=== PATIENT | female | born 1940 | race Asian ===

== ENCOUNTER → 2016-09-12 | Outpatient (CLI) | payer MEDICARE, OTHER ==
[~2016-09-12] VITALS: Ht 149.9 cm; Wt 56.0 kg
[~2016-09-12] MED LIST: ALEN70TA48 PO; AMLO1TAB12 PO; ATOR20TA86 PO; CETI-260 PO; CLOP75 PO; METO-323 PO; OMEG1CAP11 PO; RISE35TA8 PO
[2016-09-12 12:03] VITALS: BP 93/59
== END | disposition home or self-care (01) ==
LOC: SRCNTR 11:58
PROVIDERS: ATTEND Internal Medicine Critical Care Medicine
DX: I10 Essential (primary) hypertension (principal); R91.1 Solitary pulmonary nodule; J30.9 Allergic rhinitis, unspecified
CPT/HCPCS: G0463

== ENCOUNTER → 2016-11-12 | Outpatient (CLI) | payer MEDICARE, OTHER ==
[~2016-11-12] VITALS: Ht 144.8 cm; Wt 56.0 kg
[2016-11-12 13:29] VITALS: BP 114/60
== END | disposition home or self-care (01) ==
LOC: SRCNTR 13:25
PROVIDERS: ATTEND Internal Medicine Critical Care Medicine
DX: I10 Essential (primary) hypertension (principal); A31.8 Other mycobacterial infections; J30.9 Allergic rhinitis, unspecified
CPT/HCPCS: G0463

== ENCOUNTER → 2017-01-03 | Outpatient (CLI) | payer MEDICARE, OTHER ==
[~2017-01-03] VITALS: Ht 144.8 cm; Wt 56.7 kg
[~2017-01-03] MED LIST changes: -RISE35TA8 PO
[2017-01-03 13:36] VITALS: BP 105/61
== END | disposition home or self-care (01) ==
LOC: SRCNTR 13:21
PROVIDERS: ATTEND Internal Medicine Critical Care Medicine
DX: I10 Essential (primary) hypertension (principal); R91.1 Solitary pulmonary nodule; J30.9 Allergic rhinitis, unspecified; Z77.22 Contact with and (suspected) exposure to environmental tobacco smoke (acute) (chronic); Z86.73 Personal history of transient ischemic attack (TIA), and cerebral infarction without residual deficits
CPT/HCPCS: G0463

== ENCOUNTER → 2017-12-09 | Outpatient (CLI) | payer MEDICARE, OTHER ==
[~2017-12-09] VITALS: Ht 144.8 cm; Wt 54.0 kg
[~2017-12-09] MED LIST changes: +AMLO-511 PO; -CETI-260 PO; +CETI-290 PO; -METO-323 PO; +METO25XL PO; +VALS160T2 PO
[2017-12-09 11:28] VITALS: BP 106/65
== END | disposition home or self-care (01) ==
LOC: SRCNTR 11:22
PROVIDERS: ATTEND Internal Medicine Critical Care Medicine
DX: J30.9 Allergic rhinitis, unspecified (principal); R91.1 Solitary pulmonary nodule; A31.9 Mycobacterial infection, unspecified; I10 Essential (primary) hypertension; Z86.73 Personal history of transient ischemic attack (TIA), and cerebral infarction without residual deficits
CPT/HCPCS: G0463

== ENCOUNTER 2017-12-12 00:03 | Emergency (ER) | payer MEDICARE, OTHER ==
[~2017-12-12] VITALS: Ht 149.9 cm; Wt 54.1 kg
[~2017-12-12 00:03] MED LIST changes: -AMLO-511 PO; -METO25XL PO; -VALS160T2 PO
[2017-12-12] MEDS ORDERED: VALS160T2 PO (00:20)
[2017-12-12] MEDS ORDERED: AMLO-511 PO (00:20)
[2017-12-12 01:04] VITALS: BP 177/89
[2017-12-12] MEDS ORDERED: LORazepam 1 MG TABLET PO ONE (01:30)
== END 2017-12-12 01:50 | disposition home or self-care (01) ==
LOC: EMS 00:04
DX: G47.00 Insomnia, unspecified (principal); T48.5X5A Adverse effect of other anti-common-cold drugs, initial encounter; E78.00 Pure hypercholesterolemia, unspecified; I10 Essential (primary) hypertension; Z86.73 Personal history of transient ischemic attack (TIA), and cerebral infarction without residual deficits; Y92.89 Other specified places as the place of occurrence of the external cause
CPT/HCPCS: 93005; 99283

== ENCOUNTER → 2018-03-06 | Outpatient (CLI) | payer MEDICARE, OTHER ==
[~2018-03-06] VITALS: Ht 144.8 cm; Wt 52.0 kg
[~2018-03-06] MED LIST changes: -ALEN70TA48 PO; +AMLO-511 PO; -AMLO1TAB12 PO; -CETI-290 PO; -OMEG1CAP11 PO; +VALS160T2 PO
[2018-03-06 14:44] VITALS: BP 156/88
== END | disposition home or self-care (01) ==
LOC: SRCNTR 13:27
PROVIDERS: ATTEND Internal Medicine Critical Care Medicine
DX: J30.9 Allergic rhinitis, unspecified (principal); I10 Essential (primary) hypertension; A31.8 Other mycobacterial infections; R91.1 Solitary pulmonary nodule
CPT/HCPCS: G0463

== ENCOUNTER 2018-12-19 13:47 | Emergency (ER) | payer MEDICARE, MEDICAID ==
[~2018-12-19] VITALS: Ht 149.9 cm; Wt 53.6 kg
[~2018-12-19 13:47] MED LIST changes: -CLOP75 PO; +CLOP75TA3 PO
[2018-12-19] MEDS ORDERED: LOSA50TA64 PO (15:16)
[2018-12-19] MEDS ORDERED: MONT10TA21 PO (15:16)
[2018-12-19] MEDS ORDERED: CETI10TA59 PO (15:16)
[2018-12-19] MEDS ORDERED: BENZ-51 PO (15:16)
[2018-12-19 17:04] LABS: BASOPHILS % (AUTO) 0.3 % (0.0-2.0); EOSINOPHILS % (AUTO) 0 % (1.0-6.0); HEMATOCRIT 43.4 % (36-46); HEMOGLOBIN 14.9 g/dL (12.0-16.0); LYMPHOCYTES # (AUTO) 0.9 K/uL (1.0-4.8); LYMPHOCYTES % (AUTO) 7.1 % (22.0-44.0); MEAN CORPUSCULAR HEMOGLOBIN 29.5 pg (26.0-34.0); MEAN CORPUSCULAR HGB CONC 34.2 G/dL (31.0-37.0); MEAN CORPUSCULAR VOLUME 86 fL (80-100); MONOCYTES # (AUTO) 0.6 K/uL (0.1-1.0); MONOCYTES % (AUTO) 4.8 % (2.0-9.0); NEUTROPHILS # (AUTO) 10.6 K/uL (1.8-7.7); PLATELET COUNT (AUTO) 215 K/uL (150-450); RED BLOOD CELL COUNT(AUTO) 5.03 MIL/uL (4.00-5.20); RED CELL DISTRIBUTION WIDTH 13.3 % (11.5-14.5)
[2018-12-19 17:05] LABS: NEUTROPHILS % (AUTO) 87.8 % (40.0-70.0)
[2018-12-19] MEDS: ACETAMINOPHEN 325 MG TABLET PO ONE (17:14)
[2018-12-19 17:18] LABS: CALCIUM, TOTAL 9.1 mg/dL (8.8-10.5); CREATININE 1.04 mg/dL (0.60-1.30); POTASSIUM 3.7 mmol/L (3.5-5.1)
[2018-12-19 17:23] LABS: ALBUMIN 3.5 g/dL (3.4-5.0); BILIRUBIN,TOTAL 0.6 mg/dL (0.1-1.0); TOTAL PROTEIN, SERUM 8.1 g/dL (6.4-8.2)
[2018-12-19] MEDS ORDERED: 0.9% SODIUM CHLORIDE 5 ML NEB SOLUTION NEB ONE (17:27)
[2018-12-19] MEDS: ALBUTEROL SULFATE 2.5 MG/0.5 ML NEB SOLUTION NEB ONE (17:30)
[2018-12-19 19:27] VITALS: BP 122/80
[2018-12-19] MEDS: LEVOFLOXACIN 500 MG TABLET PO ONE (19:32)
== END 2018-12-19 19:32 | disposition home or self-care (01) ==
LOC: EMS 13:51
DX: J40 Bronchitis, not specified as acute or chronic (principal); N39.0 Urinary tract infection, site not specified; I10 Essential (primary) hypertension; E78.00 Pure hypercholesterolemia, unspecified; Z86.73 Personal history of transient ischemic attack (TIA), and cerebral infarction without residual deficits
CPT/HCPCS: 94640

== ENCOUNTER 2019-12-28 18:38 | Emergency (ER) | payer MEDICARE, MEDICAID ==
[~2019-12-28] VITALS: Ht 149.9 cm; Wt 54.5 kg
[~2019-12-28 18:38] MED LIST changes: -AMLO-511 PO; -ATOR20TA86 PO; +BENZ-51 PO; +CETI-450 PO; +LOSA50TA37 PO; +MONT10TA21 PO; -VALS160T2 PO
[2019-12-28 19:40] LABS: BASOPHILS % (AUTO) 0.5 % (0.0-2.0); EOSINOPHILS % (AUTO) 2.8 % (1.0-6.0); HEMATOCRIT 42.4 % (36-46); HEMOGLOBIN 13.7 g/dL (12.0-16.0); LYMPHOCYTES # (AUTO) 1.9 K/uL (1.0-4.8); LYMPHOCYTES % (AUTO) 40.7 % (22.0-44.0); MEAN CORPUSCULAR HEMOGLOBIN 28.5 pg (26.0-34.0); MEAN CORPUSCULAR HGB CONC 32.2 G/dL (31.0-37.0); MEAN CORPUSCULAR VOLUME 88 fL (80-100); MONOCYTES # (AUTO) 0.5 K/uL (0.1-1.0); MONOCYTES % (AUTO) 10.6 % (2.0-9.0); NEUTROPHILS # (AUTO) 2.1 K/uL (1.8-7.7); NEUTROPHILS % (AUTO) 45.4 % (40.0-70.0); PLATELET COUNT (AUTO) 199 K/uL (150-450); RED CELL DISTRIBUTION WIDTH 13.7 % (11.5-14.5)
[2019-12-28 19:49] LABS: ANION GAP 10 mmol/L (8-16); CALCIUM, TOTAL 8.6 mg/dL (8.8-10.5); CARBON DIOXIDE 25 mmol/L (22-29); CHLORIDE 104 mmol/L (98-107); CREATININE 0.86 mg/dL (0.60-1.30); GLUCOSE,RANDOM 98 mg/dL (70-110); POTASSIUM 4.2 mmol/L (3.5-5.1); SODIUM SERUM 139 mmol/L (136-145); UREA NITROGEN, BLOOD 16 mg/dL (7-18)
[2019-12-28 19:52] LABS: GLOMERULAR FILTR. RATE CALC > 60 mL/min (>60)
[2019-12-28 20:14] LABS: ALANINE AMINOTRANSFERASE 26 U/L (12-78); ALBUMIN 3.6 g/dL (3.4-5.0); ALKALINE PHOSPHATASE 89 U/L (46-116); ASPARTATE AMINOTRANSFERASE 20 U/L (15-37); BILIRUBIN,TOTAL 0.3 mg/dL (0.1-1.0); CREATINE KINASE, TOTAL ONLY 91 U/L (26-192); TOTAL PROTEIN, SERUM 7.7 g/dL (6.4-8.2)
[2019-12-28 20:22] LABS: B-TYPE NATRIURETIC PEPTIDE 196 pg/mL (0-100)
[2019-12-28 20:39] VITALS: BP 143/66
[2019-12-28] MEDS ORDERED: AmLODIPine BESYLATE 5 MG TABLET PO ONE (20:45)
== END 2019-12-28 21:04 | disposition home or self-care (01) ==
LOC: EMS 18:38
DX: I10 Essential (primary) hypertension (principal); E78.00 Pure hypercholesterolemia, unspecified; Z86.79 Personal history of other diseases of the circulatory system; Z79.899 Other long term (current) drug therapy
CPT/HCPCS: 93005